=== PATIENT | female | born 1950 | race Caucasian/White ===

== ENCOUNTER 2016-12-09 18:33 | Emergency (ER) | payer MEDICARE | END 2016-12-09 20:03 | disposition home or self-care (01) | LOC: EDBD 18:33 → FER 18:33 | DX: R06.00 Dyspnea, unspecified (principal); F41.9 Anxiety disorder, unspecified; K21.9 Gastro-esophageal reflux disease without esophagitis; F17.210 Nicotine dependence, cigarettes, uncomplicated; Z79.82 Long term (current) use of aspirin; Z79.899 Other long term (current) drug therapy; J44.9 Chronic obstructive pulmonary disease, unspecified; Z88.5 Allergy status to narcotic agent | CPT/HCPCS: 99283 ==